=== PATIENT | female | born 1965 | race Caucasian/White ===

== ENCOUNTER 2024-09-30 15:44 | Emergency (ER) | payer OTHER, SELFPAY ==
[2024-09-30 16:00] VITALS: BP 136/73; PULSE 86; RESP 20; TEMP 36.4; O2SAT 98; BMI 33.6
[2024-09-30 16:04] LABS: Apearance,Urine Clear (Clear); Color,Urine Yellow (Yellow); Glucose,Urine (UA) Negative (Negative); Ketones,Urine TRACE (Negative); PH,Urine 5.5 (5.0-8.5); Protein,Urine Negative (Negative)
--- NOTE | 2024-09-30 16:04 | ED_ITS ---
Discharge Plan Disposition Patient Disposition: Home, Self-Care Condition: Good Prescriptions Prescriptions: New phenazopyridine 200 mg Tablet 200 mg PO TID 2 Days Qty: 6 0RF ciprofloxacin HCl [Cipro] 500 mg tablet 500 mg PO BID 7 Days Qty: 14 0RF No Action citalopram 40 mg tablet 40 mg PO DAILY Patient Comments: TAKE 1 TABLET BY MOUTH ONCE DAILY clindamycin phosphate 1 % swab 1 applic TOPICAL DAILY Patient Comments: APPLY A THIN LAYER TO THE AFFECTED AREA(S) BY TOPICAL ROUTE TWO TIMES PER DAY Referrals Follow up/Referrals: Provider,Referral, MD [Primary Care Provider] - See instructions Activity Restrictions/Add. Instructions Additional Instructions/Restrictions: Drink plenty of fluids. Take tylenol or ibuprofen for pain or fever. Take the medications as directed. Follow up with your regular doctor. GO TO THE ER FOR ANY WORSENING SYMPTOMS The pyridium will make your urine turn orange, this is an expected side effect. It will stain your clothes if it comes into contact with them. We will culture the urine. That will tell what bacteria is causing your infection and which antibiotics will treat it best.This test takes 3 days to complete. Clinical Impressions Clinical Impression: UTI (urinary tract infection) Instructions Patient Instructions: DI for Urinary Tract Infection (UTI), Urine Culture, Phenazopyridine Print Language Print Language: Kazakh Discharge ED Provider: Rai Dean [facility] General Stated complaint: burning frequent urination Time Seen by Provider: 09/30/24 16:04 Related Data Home Medications ?Medication ?Instructions ?Recorded ?Confirmed citalopram 40 mg tablet 40 mg PO DAILY 09/30/24 09/30/24 clindamycin phosphate 1 % topical 1 applic topical DAILY 09/30/24 09/30/24 swab Previous Rx's ?Medication ?Instructions ?Recorded ciprofloxacin HCl 500 mg tablet 500 mg PO BID 7 days #14 tabs 09/30/24 (Cipro) phenazopyridine 200 mg tablet 200 mg PO TID 2 days #6 tabs 09/30/24 Allergies Allergy/AdvReac Type Severity Reaction Status Date / Time No Known Allergies Allergy Verified 12/22/20 11:51 [facility] Disclaimer: The information contained in this section may have been updated after the patient was seen, as this information can be updated by other users. Social History Smoking Status: Never smoker alcohol intake: never current occupational status: employed and retired Travel in the last 8 weeks: None ROS Obtained: Yes All systems reviewed & no additional complaints except as documented Constitutional Constitutional: Reports system reviewed and no additional complaints, except as documented, Denies chills and Denies fever(s) Eyes Eyes: Denies eye discharge ENT Ears, Nose, Mouth, and Throat: Denies dysphagia, Denies sore throat and Denies throat swelling Cardiovascular Cardiovascular: Denies chest pain and Denies dyspnea Respiratory Respiratory: Denies chest congestion, Denies cough and Denies dyspnea Gastrointestinal Gastrointestingal: Denies abdominal pain, constipation, diarrhea, dysphagia, nausea or vomiting Genitourinary Female Genitourinary: Reports as per HPI, Reports dysuria, Reports urinary frequency, Denies urinary incontinence, Reports urinary hesitancy and Reports urinary urgency Musculoskeletal Musculoskeletal: Denies arthralgias and Reports back pain Integumentary/Breasts Skin/Breast: Denies rash Neurologic Neurologic: Denies paresthesias Allergic/Immunologic Allergic/Immunologic: Denies throat swelling Physical Exam General General appearance: alert and in no apparent distress Head Head exam: atraumatic and normocephalic Eye Eye exam: Present normal appearance, PERRL and EOMI ENT ENT exam: Present normal exam, mucous membranes moist, TM's normal bilaterally and normal external ear exam Neck Neck exam: Present normal inspection, full ROM and trachea midline; Absent tenderness, meningismus or lymphadenopathy Chest Chest inspection: Present normal inspection and symmetric chest wall rise; Absent tenderness Respiratory Respiratory exam: Present normal lung sounds bilaterally; Absent respiratory distress, wheezes or stridor Cardiovascular Cardiovascular exam: Present regular rate, normal rhythm and normal heart sounds Abdominal Exam Abdominal exam: Present soft and normal bowel sounds; Absent distention, tenderness, guarding, rebound, rigidity, incision, psoas sign, obturator sign, heel tap sign, Olsen's sign, Rovsing's sign or tenderness at McBurney's Point Extremities Exam Extremities exam: Present normal inspection, full ROM and normal capillary refill; Absent tenderness, edema, joint swelling, calf tenderness or cyanosis Back Exam Back exam: Present normal inspection and full ROM; Absent tenderness, CVA tenderness (R) or CVA tenderness (L) Neurological Exam Neurological exam: Present alert, oriented X3 and normal gait Psychiatric Psychiatric exam: Present normal affect and normal mood Skin Skin exam: Present warm, dry, intact and normal color Lymphatic Lymphatic Findings: no adenopathy Medical Decision Making Medical Records Medical records reviewed: No I reviewed the patient's medical records. Screening: Per USPSTF and CDC recommendations, given the prevalence of disease in our region, it is our hospital?s policy to screen for HIV and viral Hepatitis for all patients aged 18 and over and those with ongoing risk factors. Chip Inquiry Pt receiving controlled substance: No Lab Data Lab results reviewed: Yes I reviewed the patient's lab results. Orders (Tests/Meds): ORDERS Category Date Time Status Urine Culture Stat Micro 09/30/24 16:04 Ordered
[2024-09-30 16:05] LABS: Bilirubin,Urine Negative (Negative); Blood, Urine Trace (Negative); UTC Leukocyte Esterase,Urine 1+ (Negative); UTC Nitrate,Urine Negative (Negative); Urobilinogen,Urine 0.2 EU/dl (0.2)
[2024-09-30 17:05] VITALS: BP 136/73; PULSE 86; RESP 20; TEMP 36.4; O2SAT 98
--- OUTSIDE RECORDS SUMMARY | 2024-09-30 23:48 | XMS_ITS | Data Portability ---
Author Organization [facility] [place] Address [address] [place] [address] Care Team Providers Care Senior Sales Director Name Role Phone DANIMARY GRACE REMI Senior Informatica Developer [facility] Primary Care Provider Assessment No assessment recorded. Plan of Treatment Reminders Order Date Submit Date Provider Last Modified By Organization Details Last Modified Time Details Appointments None recorded. Lab None recorded. Referral None recorded. Procedures None recorded. Surgeries None recorded. Imaging None recorded. Medication Orders clindamycin phosphate 1 % topical swab 2023 024 [facility], [address], [address], 4 09:17:05 Patient TargetsNo targets recorded. Patient Instructions Encounter Date Encounter Id Patient Instructions Last Modified By Organization Details Last Modified Time 09/01/2019 [id number] healthy upper back: exercises [email or web address] Not available 09/01/2019 11:40:38 Reason for Referral None Reported. Results Created Date Observation Date Name Description Value Unit Range Abnormal Flag Note LastModifiedBy Organization Detail LastModifiedTime 11/24/19 20 11/24/2019 XR, thora cic spine , 2 view [facility] [address] [place] [address] Patifred t Name: MONI méndez : 1964 Danielle méndez Orderi ng Provid er: AC PEREZ EXAM DATE: 2019 EXAM: XR THORAC IC AP/LAT CLINIC AL INFORM ATION: Back pain. IMAGES PROVID ED: AP, and latera l views of the thorac ic spine. COMPAR RADHA: None. FINDIN GS: Curvat ure, alignm ent, verteb ral body height s and disc spaces are normal . Anteri or and latera l osteop hytes are seen at multip le levels . No radiog raphic eviden ce of injury is noted. IMPRES DIANA: Mild degene rative change s of the thorac ic spine. Interp reted By: Bhupinder Maza MD Electr onical ly Signed By: Bhupinder Maza MD on 11/24/19 2:27 PM [facility] Radiology [facility] [address] [place], [address], 12/11/2019 09:45:39 02/06/20 24 02/04/2024 MAMMO , scree nuris, tomos ynthe sis, bilat eral, w/ CAD [facility] [address] [place] [address] Paulafred méndez Name: MONI méndez : 1964 Age: 58 years Patifred t Orderi ng Provid er: ZORAIDA ODELL EXAM DATE: 2023 EXAM: MG SCREEN ING DORIS MAMMOG CHERRIE INDICA TION: Routin e screen ing. PROCED URE: Multis lice imagin g of both breast s was perfor med in standa rd projec tions using Hologi c Seleni a Dimens ions tomosy nthesi s equipm ent (3D mammog deangelo) . 2D images were create d from the 3D datase t using C-View softwa re. The study was read with the assist ance of Comput er Aided Detect ion (CAD) softwa re. COMPAR RADHA: This was compar ed with previo us mammog diandra dated 022, 019, 014 FINDIN GS: The breast s are hetero geneou sly dense. This may lower the sensit ivity of mammog deangelo. There is no suspic ious mass or cluste r of calcif icatio ns. No leena ectura l distor tion. IMPRES DIANA: BI-RAD S catego ry 1, Negati ve. There is no eviden ce of malign fransisca. Screen ing mammog diandra are recomm ended in one year. Result s were mailed or given to the danielle Brownlee reted By: Lucia ibarra MD Electr onical ly Signed By: Lucia ibarra MD on 024 5:22 PM [facility]iology [address] , [place], [address], 02/07/2024 08:09:17 Result Notes None recorded. Problems Name Problem SNOMED Code Status Onset Date Resolution Date Notes Provider Name and Address Organization Details Recorded Time Thoracic back pain 294656890 Active 019 ANIKET XIE PA-C [address] [place], [address] , [facility] 9 11:39:12 Problem Notes None recorded. Procedures Surgical History Date Name Laterality Status Provider Name and Address Organization Details Recorded Time 11/24/19 Interpretation completed BRADLEY ROTHMAN PA-C [address] [place], [address], [facility] 11/24/2019 10:39:47 Cholecystectomy completed [facility] 09/01/2019 11:09:11 section completed [facility] 09/01/2019 11:09:20 excision of bunion completed [facility] 09/01/2019 11:09:33 Imaging Results Imaging Date Name Status LastModified by Organiz ation Details LastModified Time 11/24/2019 XR, thoracic spine, 2 view completed [facility]iology [facility] [address] [place], [address], 12/11/2019 09:45:39 02/04/2024 MAMMO, screening, tomosynthesis , bilateral, w/ CAD completed [facility] [address] , [place], [address], 02/07/2024 08:09:17 Procedure Notes None recorded. Medical Equipment None Reported. Allergies No known drug allergies Medications Name Sig Start Date Stop Date Status Note LastModified by Organization Details LastModified Time citalopram 40 mg tablet Take 1 tablet every day by oral route. active Not Available Not Available No t Available clindamycin phosphate 1 % topical swab APPLY A THIN LAYER TO THE AFFECTED AREA(S) BY TOPICAL ROUTE 2 TIMES PER DAY 2023 active Not Available Not Available Not Avai lable bupropion HCl XL 300 mg 24 hr tablet, extended release Take 1 tablet every day by oral route. active dc Not Available Not Available No t Available Rexulti 0.5 mg tablet Take 1 tablet every day by oral route. active dc Not Available Not Available No t Available Vitals Date Recorded Body height Body mass index (BMI) Body weight Systolic blood pressure Diastolic blood pressure Provider Name and Address Organization Details Last Updated DateTime 11/24/2019 170.18 cm 26.6 kg/m2 44258.7 g 126 mm[Hg] 80 mm[Hg] Celinastanley Lee [facility] 0 10:24:34 Social History Question Answer Notes LastModified by Organizat ion Details LastModified Time Tobacco Smoking Status Never Smoker [facility] 09/01/2019 11:08:52 What Was The Date Of Your Most Recent Tobacco Screening? 09/16/2024 [email or web address] Information not available 09/16/2024 Sex: Unknown Functional Status None recorded. Mental Status None recorded. Family History Relationship Description Onset Age of this Age Resolved Age Notes LastModified by Organization Details LastModified Time Unspecified Relation Diabetes mellitus [email or web address] Not available 09/01 11:08:08 Unspecified Relation Hypertensive disorder [email or web address] Not available 09/01 11:08:13 Unspecified Relation Cerebrovascu lar accident [email or web address] Not available 11:08:18 Medical History No medical history recorded. Gynecological HistoryNo gynecological history recorded. Obstetrics History GPAL:G 0 P 0 0 0 0 Past Encounters Encounter ID Performer Location Encounter Start Date Encounter Closed Date Diagnosis/Indication Diagnosis SNOMED-CT Code Diagnosis ICD10 Code [id number] ANIKET XIE PA-C [facility] [address] [place] [address] 09/01/2019 10:45:30 09/05/2019 10:42:07 Thoracic back pain 067686945 M54.6 [id number] OCTAVIO PEREZ MD NEUROSURG [facility]NA[facility]aren [facility] [address] [place] [address] 11/24/2019 10:00:50 11/24/2019 11:06:25 Thoracic spondylosis 815874784 M47.814 [id number] JONO BUTTERFIELD [place] [address] [place] [address] 09/16/2024 08:31:02 09/16/2024 09:07:56 Seborrheic keratosis 717593959 L82.1 Folliculitis 31007973 L7 3.8 Multiple b enign melanocytic nevi 885453360 D22.5 L81.4 D18.01 L82.1 History of atypical nevus 5214752556 101 Z86.018 Health Concerns Section Related Observation LastModified by Organization Detai ls LastModified Time None Recorded Concern Status LastModified by Organization Details LastModified Time None Recorded Advance Directives Directive None Recorded Payers Encounter Date Sequence Insurance Name Policy Number Policy Nguyen Covered Member ID Nguyen Member ID Guarantor Name 11/24/2019 1 [place] [employer] [place] [id number] Moni Perkins [id number] Moni Perkins 09/16/2024 1 [facility] (O) [id number] Moni Perkins [id number] Moni Perkins Notes Date Note Type Note Provider Name and Address Organization Details Recorded Time 09/01/2019 text/html 54-year-old zane cmkeon since the clinic for evaluation of her thoracic pain and popping. Patient states that this is been going on for a year. It occurs mainly after work. She is employed as a OR nurse. She noticed it whenever she is walking to her car she feels popping/cracking sensation in her midthoracic spine. She occasionally does get pain in the thoracic spine. She her biggest concern is the popping. When she does get pain in the thoracic spine she describes it as a deep ache with tightness. Rates it at 7 out of 10. It does come and go. It is better if she lies down and with stretching. Lifting makes it worse. She is went to the chiropractor for 1 visit which did not help. She takes ibuprofen occasionally which does help her symptoms. She denies any numbness tingling weakness. She does not have any imaging. ANIKET XIE PA-C [address] [place], [address], [facility] 09/01/2019 11:41:35 11/24/2019 text/html Ms. Perkins prese nts to clinic for follow-up of some mid thoracic popping and cracking sensation after trial of physical therapy. She states that this is significantly improved her symptoms. She still notices some popping and cracking after work, however this is improved. She denies any significant mid thoracic back pain. Denies any lower extremity weakness, bowel or bladder changes, sensory deficits, gait changes. BRADLEY ROTHMAN PA-C [address] [place], [address], [facility] 11/24/2019 10:41:20 09/16/2024 text/html I have a breakou t on my face duration: years tx: Valtrex (out currently) reports: I get seen by [facility] dermatology and they told me this is something viral and they usually give me Valtrex. The valtrex does not usually clear it up. I was given a steroid pack for my knee and it had cleared my face up while taking it. I would like to get a second opinion. I have a spot on my nosereports: concerning JONO BUTTERFIELD [address] [place], [address], [facility] 09/16/2024 18:03:16 OBGyn Episode No OBEpisode recorded.
--- OUTSIDE RECORDS SUMMARY | 2024-09-30 23:48 | XMS_ITS | Continuity of Care Document ---
Author Organization [facility] NIGHAT Grimaldo [place] Address [address] [place] [address] Care Team Providers Care Manufacturing Industrial Engineer Name Role Phone REMI FLETCHER Audiologist [facility] Primary Care Provider Assessment No assessment recorded. Plan of Treatment Reminders Order Date Submit Date Provider Last Modified By Organization Details Last Modified Time Details Appointments None recorded. Lab None recorded. Referral None recorded. Procedures None recorded. Surgeries None recorded. Imaging None recorded. Medication Orders clindamycin phosphate 1 % topical swab 2023 024 [facility], [address], [address], 4 09:17:05 Patient TargetsNo targets recorded. Patient InstructionsNo instructions recorded. Reason for Referral None Reported. Problems Name Problem SNOMED Code Status Onset Date Resolution Date Notes Provider Name and Address Organization Details Recorded Time Thoracic back pain 900112459 Active 019 ANIKET XIE PA-C [address] [place], [address] , [facility] 9 11:39:12 Problem Notes None recorded. Procedures Surgical History Date Name Laterality Status Provider Name and Address Organization Details Recorded Time 11/24/19 20 Interpretation completed BRADLEY ROTHMAN PA-C [address] [place], [address], [facility] 11/24/2019 10:39:47 Cholecystectomy completed Celina Lee [facility] 09/01/2019 11:09:11 section completed Celina Lee [facility] 09/01/2019 11:09:20 excision of bunion completed Celina Lee [facility] 09/01/2019 11:09:33 Imaging Results None recorded. Procedure Notes None recorded. Medical Equipment None [...] Available Not Available No t Available Vitals None Recorded Social History Question Answer Notes LastModified by Organizat ion Details LastModified Time Tobacco Smoking Status Never Smoker Celina Lee [facility] 09/01/2019 11:08:52 What Was The Date [...] Diagnosis/Indication Diagnosis SNOMED-CT Code Diagnosis ICD10 Code [id number] JONO BUTTERFIELD [facility] [address] [place] [address] 09/16/2024 08:31:02 09/16/2024 09:07:56 Seborrheic keratosis 359826379 L82.1 Folliculitis 89422100 L7 3.8 Multiple b enign melanocytic nevi 463739534 D22.5 L81.4 D18.01 L82.1 History of atypical nevus 2133892610 101 Z86.018 Health Concerns Section Related Observation LastModified by Organization Detai ls LastModified Time None Recorded Concern Status LastModified by Organization Details LastModified Time None Recorded Payers Encounter Date Sequence Insurance Name Policy Number Policy Nguyen Covered Member ID Nguyen Member ID Guarantor Name 09/16/2024 1 [facility] [id number] Moni Ramon Perkins [id number] Moni S Gregorio Notes Date Note Type Note Provider Name and Address Organization Details Recorded Time 09/16/2024 text/html I have a breakou t on my face duration: years tx: Valtrex (out currently) reports: I get seen by [facility] dermatology and they told me this is something viral and they usually give me Valtrex. The valtrex does not usually clear it up. I was given a steroid pack for my knee and it had cleared my face up while taking it. I would like to get a second opinion. I have a spot on my nosereports: concerning JONO BUTTERFIELD [address] [place], [address], [facility] 09/16/2024 18:03:16 OBGyn Episode No OBEpisode recorded.
== END 2024-09-30 17:08 | disposition home or self-care (01) ==
PROVIDERS: Emergency Provider Nurse Practitioner Family
DX: N39.0 Urinary tract infection, site not specified (principal)
CPT/HCPCS: 81003; 87086; 99213; G0381

== ENCOUNTER 2024-11-17 18:40 | Emergency (ER) | payer OTHER, SELFPAY ==
[2024-11-17 18:55] VITALS: BP 140/80; PULSE 76; RESP 18; TEMP 36.8; O2SAT 99; BMI 36.8
[2024-11-17 19:01] LABS: Apearance,Urine Cloudy (Clear); Color,Urine Dark Yellow (Yellow); Glucose,Urine (UA) Negative (Negative); Protein,Urine Negative (Negative)
[2024-11-17 19:02] LABS: Bilirubin,Urine Negative (Negative); Blood, Urine 1+ (Negative); Ketones,Urine TRACE (Negative); UTC Leukocyte Esterase,Urine 1+ (Negative); UTC Nitrate,Urine Negative (Negative); Urobilinogen,Urine 0.2 EU/dl (0.2)
--- NOTE | 2024-11-17 19:05 | EXP.UTC ---
Discharge Plan Disposition Patient Disposition: Home, Self-Care Condition: Good Prescriptions Prescriptions: New cephalexin 500 mg capsule 500 mg PO BID 5 Days Qty: 10 0RF phenazopyridine [Pyridium] 200 mg tablet 200 mg PO Q8H 2 Days Qty: 6 0RF No Action citalopram 40 mg tablet 40 mg PO DAILY Patient Comments: TAKE 1 TABLET BY MOUTH ONCE DAILY Referrals Follow up/Referrals: Provider,Referral, MD [Primary Care Provider] - See instructions Activity Restrictions/Add. Instructions Additional Instructions/Restrictions: *Increase fluids. Water not Soda or Tea *Start antibiotic immediately and be sure to take as ordered for the FULL length of time although you should start to see improvement over the next 48 hours *Pyridium as needed Remember this medication will turn your urine . This is normal but it will stain what ever it gets on *You should not use Pyridium for more than 48 hours. If so , follow up with your primary physician to review urine culture and ensure that antibiotic is adequate for infection *Be SURE to follow up anytime for new or worsening symptoms with your family doctor. AND in 48 hours for urine culture results with your family doctor, if you do not have a doctor then you may call back to the [facility] for urine culture results and further treatment. We do recommend that you choose and establish care with a Primary Care Physician. ?AND follow up with them ?in 10-14 days to repeat UA to ensure infection is resolved and blood no longer present *Be sure to let your PCP know that we sent urine cultures from the [facility] so they can follow up to ensure that you area the on the correct antibiotic Call your doctor office and make appointment for 48 hours (2 days from today) ?to follow up and get the results of your urine culture and further treatment Clinical Impressions Clinical Impression: UTI (urinary tract infection) Instructions Patient Instructions: DI for Urinary Tract Infection (UTI), Cephalexin Print Language Print Language: [place] Discharge ED Provider: Bing Banerjee [facility] General Stated complaint: burning,frequency with urination Mode of Arrival: Ambulatory Source of Information: Patient Limitations: No Limitations Time Seen by Provider: 11/17/24 19:06 Description of Symptoms (Recalled from Triage Doc. by RN): PATIENT C/O FREQUENCY AND BURNING WITH URINATION THAT STARTED THIS AFTERNOON HEENT Symptoms (Recalled from RN notes): No Resp Symptoms (Recalled from RN notes): No Skin Symptoms (Recalled from RN notes): No MS Symptoms (Recalled from RN notes): No Functional Status (Recalled from RN notes): WNL History of Present Illness Provider Complaint: Patient states that she started earlier having burning with urination and feeling of urgency and frequency like she had last month when she had a UTI so she came in to get it checked Related Data Home Medications ?Medication ?Instructions ?Recorded ?Confirmed citalopram 40 mg tablet 40 mg PO DAILY 09/30/24 11/17/24 Previous Rx's ?Medication ?Instructions ?Recorded cephalexin 500 mg capsule 500 mg PO BID 5 days #10 caps 11/17/24 phenazopyridine 200 mg tablet 200 mg PO Q8H pain 2 days #6 tabs 11/17/24 (Pyridium) Allergies Allergy/AdvReac Type Severity Reaction Status Date / Time No Known Allergies Allergy Verified 12/22/20 11:51 Worker's Comp Is this a Worker's Comp case?: No [facility] Disclaimer: The information contained in this section may have been updated after the patient was seen, as this information can be updated by other users. Medical History (Updated 11/17/24 @ 19:10 by Bing Banerjee APRN) UTI (urinary tract infection) Depression Migraine Surgical History (Updated 11/17/24 @ 19:05 by Yesi Rowe RN) History of section History of cholecystectomy Social History (Updated 09/30/24 @ 17:07 by Rai Dena APRN) Smoking Status: Never smoker alcohol intake: never current occupational status: employed and retired Travel in the last 8 weeks: None Have you lived/traveled outside [place] in past 30 days?: No Contact w/someone who lives/traveled outside [place] past 30 days?: No Exposure to someone with infectious disease in past 14 days?: No Do you have a fever (greater than 100.4 F or 38 C)?: No Have you tested positive for COVID-19: No Exposed to someone with COVID-19 in past 14 days?: No Do you have a sore throat?: No Do you have a cough?: No Do you have any weakness?: No Do you have any diarrhea?: No Are you experiencing any unusual bleeding?: No Do you have any muscle aches/pain?: No Do you have any abdominal pain?: No Are you experiencing loss of taste or smell?: No ROS Obtained: Yes All systems reviewed & no additional complaints except as documented and Yes Systems reviewed as appropriate & no additional complaints except as documented Constitutional Constitutional: Reports system reviewed and no additional complaints, except as documented, Reports as per HPI, Denies body ache, Denies chills and Denies fever(s) ENT Ears, Nose, Mouth, and Throat: Reports system reviewed and no additional complaints, except as documented and Reports as per HPI Cardiovascular Cardiovascular: Reports system reviewed and no additional complaints, except as documented and Reports as per HPI Respiratory Respiratory: Reports system reviewed and no additional complaints, except as documented and Reports as per HPI Gastrointestinal Gastrointestingal: Reports system reviewed and no additional complaints, except as documented and as per HPI; Denies abdominal pain Genitourinary Female Genitourinary: Reports system reviewed and no additional complaints, except as documented, Reports as per HPI, Reports dysuria, Reports urinary frequency and Reports urinary urgency Musculoskeletal Musculoskeletal: Reports system reviewed and no additional complaints, except as documented and Reports as per HPI Physical Exam General General appearance: alert and in no apparent distress ENT ENT exam: Present mucous membranes moist Respiratory Respiratory exam: Present normal lung sounds bilaterally; Absent respiratory distress or wheezes Cardiovascular Cardiovascular exam: Present regular rate, normal rhythm and normal heart sounds Abdominal Exam Abdominal exam: Present soft and normal bowel sounds; Absent distention or tenderness Neurological Exam Neurological exam: Present alert and oriented X3 Medical Decision Making Medical Records Screening: Per USPSTF and CDC recommendations, given the prevalence of disease in our region, it is our hospital?s policy to screen for HIV and viral Hepatitis for all patients aged 18 and over and those with ongoing risk factors. Chip Inquiry Pt receiving controlled substance: No Chip was queried for this patient: No Vital Signs: 11/17/24 18:55 Temperature 98.2 F Temperature Source Oral Pulse Rate [Left Brachial] 76 Respiratory Rate 18 Blood Pressure [Left Arm] 140/80 Blood Pressure Mean [Left Arm] 100 Blood Pressure Source [Left Arm] Automatic Cuff Blood Pressure Position [Left Arm] Sitting 02 Sat by Pulse Oximetry 99 Oxygen Delivery Method Room Air Lab Data Lab results reviewed: Yes I reviewed the patient's lab results. Lab Results 11/17/24 18:49: Urine Color Dark yellow, Urine Appearance Cloudy, Urine pH 5.0, Ur Specific [place] 1.030, Urine Protein Negative, Urine Glucose (UA) Negative, Urine Ketones Trace, Urine Blood 1+, Urine Nitrate Negative, Urine Bilirubin Negative, Urine Urobilinogen 0.2, Ur Leukocyte Esterase 1+ A Orders (Tests/Meds): ORDERS Category Date Time Status Urine Culture Stat Micro 11/17/24 18:51 Received
[2024-11-17 19:10] VITALS: BP 140/80; PULSE 76; RESP 18; TEMP 36.8; O2SAT 99
--- NOTE | 2024-11-19 12:51 | PC.NURSE ---
INFORMED PATIENT OF URINE CULTURE RESULTS, PT STATED SHE IS FEELING BETTER. URGED PT TO FOLLOW UP WITH PRIMARY CARE. PT VERBALIZED UNDERSTANDING.
== END 2024-11-17 19:14 | disposition home or self-care (01) ==
PROVIDERS: Emergency Provider Nurse Practitioner
DX: N39.0 Urinary tract infection, site not specified (principal)
CPT/HCPCS: 81003; 87086; 87088; 87186; 99213; G0381